=== PATIENT | male | born 1970 | race Caucasian/White ===

== ENCOUNTER 2016-11-13 14:08 | Emergency (ER) | payer MEDICAID ==
[2012-11-07 05:41] VITALS: BMI 18.5
== END 2016-11-13 15:50 | disposition home or self-care (01) ==
LOC: D.ER 14:08
DX: S62.616A Displaced fracture of proximal phalanx of right little finger, initial encounter for closed fracture (principal); W19.XXXA Unspecified fall, initial encounter; Y93.89 Activity, other specified; Y92.018 Other place in single-family (private) house as the place of occurrence of the external cause

== ENCOUNTER 2017-01-08 10:05 | Emergency (ER) | payer MEDICAID ==
[2012-11-07 05:41] VITALS: BMI 18.5
== END 2017-01-08 13:04 | disposition home or self-care (01) ==
LOC: D.ER 10:05
DX: S40.262A Insect bite (nonvenomous) of left shoulder, initial encounter (principal); W57.XXXA Bitten or stung by nonvenomous insect and other nonvenomous arthropods, initial encounter; Y93.89 Activity, other specified; Y92.89 Other specified places as the place of occurrence of the external cause

== ENCOUNTER 2017-06-02 02:27 | Emergency (ER) | payer MEDICAID ==
[2012-11-07 05:41] VITALS: BMI 18.5
== END 2017-06-02 03:19 | disposition home or self-care (01) ==
LOC: D.ER 02:27
DX: L03.114 Cellulitis of left upper limb (principal); F17.200 Nicotine dependence, unspecified, uncomplicated

== ENCOUNTER 2017-11-09 14:31 | Emergency (ER) | payer MEDICAID ==
[2012-11-07 05:41] VITALS: BMI 18.5
== END 2017-11-09 21:36 | disposition left against medical advice (07) ==
LOC: D.ER 14:31
DX: S49.91XA Unspecified injury of right shoulder and upper arm, initial encounter (principal); W19.XXXA Unspecified fall, initial encounter; Y93.89 Activity, other specified; Y92.89 Other specified places as the place of occurrence of the external cause

== ENCOUNTER 2018-07-14 06:53 | Emergency (ER) | payer MEDICAID ==
[~2018-07-14] VITALS: Ht 193 cm; Wt 70.5 kg
[2018-07-14 07:02] VITALS: Ht 193 cm; Wt 70.5 kg
[2018-07-14] MEDS ORDERED: KEFLEX500 MG PO (07:13)
[2018-07-14] MEDS ORDERED: VENTOLIN HFA18 GM INH (07:15)
[2018-07-14] MEDS ORDERED: CLEOCIN HCL300 MG PO (07:15)
[2018-07-14] MEDS ORDERED: BENZONATATE200 MG PO (07:15)
[2018-07-14] MEDS ORDERED: MEDROL DOSE PACK4 MG PO (07:15)
[2018-07-14] MEDS ORDERED: ACETAMINOPHEN500 M1 PO (07:15)
[2018-07-14] MEDS ORDERED: SCOT-TUSSI10 MG/5 ML PO (07:15)
[2018-07-14 07:51] VITALS: BP 129/83
== END 2018-07-14 07:48 | disposition home or self-care (01) ==
LOC: D.ER 06:53
DX: J20.9 Acute bronchitis, unspecified (principal); S10.91XA Abrasion of unspecified part of neck, initial encounter; L03.221 Cellulitis of neck; X58.XXXA Exposure to other specified factors, initial encounter; Y93.89 Activity, other specified; Y92.019 Unspecified place in single-family (private) house as the place of occurrence of the external cause; R05 Cough; F17.200 Nicotine dependence, unspecified, uncomplicated

== ENCOUNTER 2019-11-11 11:54 | Emergency (ER) | payer MEDICAID ==
[~2019-11-11] VITALS: Ht 193 cm; Wt 77.3 kg
[~2019-11-11 11:54] MED LIST: ACETAMINOPHEN500 M1 PO; BENZONATATE200 MG PO; CLEOCIN HCL300 MG PO; KEFLEX500 MG PO; MEDROL DOSE PACK4 MG PO; SCOT-TUSSI10 MG/5 ML PO; VENTOLIN HFA18 GM INH
[2019-11-11 12:01] VITALS: Ht 193 cm; Wt 77.3 kg
[2019-11-11 12:32] LABS: CALC OSMOLALITY 283 mosm/kg (275-300); CALCIUM 8.7 mg/dL (8.5-10.1); CARBON DIOXIDE 26.2 mmol/L (21.0-32.0); CHLORIDE - SERUM 107 mmol/L (98-107); CREATININE - SERUM 0.8 mg/dL (0.6-1.3); GLUCOSE 121 mg/dL (74-106); POTASSIUM - SERUM 3.5 mmol/L (3.5-5.1); SODIUM 141 mmol/L (136-145); UREA NITROGEN 18 mg/dL (7-18); eGFR NON AFRICAN AMERICAN > 90 mL/min (90-120)
[2019-11-11 12:36] LABS: BASOPHILS 0.5 % (0-2); EOSINOPHILS 3.8 % (0-7); HEMATOCRIT 36.9 % (42.0-54.0); HEMOGLOBIN 12.4 g/dL (13.5-17.5); IMMATURE GRANULOCYTES 0.2 % (0-5); LYMPHOCYTES 27.1 % (15-50); MCH 31.3 pg (26.0-34.0); MCHC 33.6 g/dL (31.0-37.0); MCV 93.2 fL (80.0-100.0); MEAN PLATELET VOLUME 8.9 fL (7.4-10.4); MONOCYTES 10.1 % (2-11); NEUTROPHILS 58.3 % (40-80); PLATELET COUNT 246 10x3/uL (130-400); RBC 3.96 10x6/uL (4.20-6.10); RDW 15.1 % (11.5-14.5); WBC 5.8 10x3/uL (4.8-10.8)
[2019-11-11 12:39] LABS: ALBUMIN 3.7 g/dL (3.4-5.0); ALKALINE PHOSPHATASE 65 U/L (30-120); ALT (SGPT) 212 U/L (10-68); AMYLASE - SERUM 43 U/L (25-115); LIPASE 75 U/L (73-393); PROTEIN - SERUM 7.3 g/dL (6.4-8.2)
[2019-11-11 13:23] LABS: BILIRUBIN NEGATIVE (NEGATIVE); GLUCOSE NEGATIVE (NEGATIVE); KETONE NEGATIVE (NEGATIVE); NITRITE NEGATIVE (NEGATIVE); UROBILINOGEN NORMAL (NORMAL)
[2019-11-11 13:24] LABS: UDS - AMPHET POSITIVE QUAL (NEGATIVE); UDS - BARB NEGATIVE QUAL (NEGATIVE); UDS - BENZO NEGATIVE QUAL (NEGATIVE); UDS - COCAINE NEGATIVE QUAL (NEGATIVE); UDS - OPIATE NEGATIVE QUAL (NEGATIVE); UDS - PCP NEGATIVE QUAL (NEGATIVE); UDS - THC POSITIVE QUAL (NEGATIVE)
[2019-11-11] MEDS ORDERED: ULTRAM50 MG PO (13:37)
[2019-11-11 13:49] VITALS: BP 120/78
== END 2019-11-11 13:50 | disposition home or self-care (01) ==
LOC: D.ER 11:54
PROVIDERS: Emergency Medicine
DX: R10.30 Lower abdominal pain, unspecified (principal); N20.0 Calculus of kidney; M54.9 Dorsalgia, unspecified; Z72.0 Tobacco use